=== PATIENT | female | born 1955 | race Caucasian/White ===

== ENCOUNTER 2018-02-27 06:26 | Inpatient (IN) | payer OTHER ==
[2018-02-24 14:00] VITALS: BMI 35.6
[2018-02-27] MEDS ORDERED: fentaNYL CITRATE 250 MCG/5 ML VIAL ONE (07:11)
[2018-02-27] MEDS ORDERED: PROPOFOL 20 ML ONE ×18 (07:11→12:42)
[2018-02-27] MEDS ORDERED: SUCCINYLCHOLINE CHLORIDE 200 MG/10 ML VIAL ONE (07:11)
[2018-02-27] MEDS ORDERED: MIDAZOLAM HCL 2 MG/2 ML SINGLE DOSE VIAL ONE (07:11)
[2018-02-27] MEDS ORDERED: DEXAMETHASONE SOD PHOSPHATE 4 MG/1 ML VIAL ONE ×2 (07:12→08:32)
[2018-02-27] MEDS ORDERED: ceFAZolin SODIUM 1 GM VIAL ONE (07:12)
[2018-02-27] MEDS ORDERED: ONDANSETRON 4 MG/2 ML VIAL ONE (07:12)
[2018-02-27] MEDS ORDERED: TRANEXAMIC ACID 1000 MG/10 ML VIAL ONE (07:12)
[2018-02-27] MEDS ORDERED: VANCOMYCIN 1,000 MG VIAL (RESTRICTED TO ID ONLY) ONE (07:12)
[2018-02-27] MEDS ORDERED: LIDOCAINE HCL/PF 2% SDV 5ML VIAL ONE (07:12)
[2018-02-27] MEDS ORDERED: SODIUM CHLORIDE 0.9% P/F 10 ML VIAL IJ ONE (07:22)
[2018-02-27] MEDS ORDERED: DESFLURANE GAS 240 ML BOTTLE IH ONE (07:26)
[2018-02-27] MEDS ORDERED: THROMBIN (BOVINE) 5,000 UNIT VIAL TP ONE (07:46)
[2018-02-27] MEDS ORDERED: HEPARIN NA (PORCINE) 5,000 UNITS/ML 1ML VIAL ONE (07:46)
[2018-02-27] MEDS ORDERED: VANCOMYCIN 1,000 MG VIAL (RESTRICTED TO ID ONLY) IVPB ONE (08:00)
[2018-02-27] MEDS ORDERED: ePHEDrine SULFATE 50 MG/1 ML AMPULE ONE (08:57)
[2018-02-27] MEDS ORDERED: ceFAZolin SODIUM 1 GM VIAL IVPB ONE (09:25)
[2018-02-27] MEDS ORDERED: ONDANSETRON 4 MG/2 ML VIAL IVPUSH PRN ×2 (13:30→14:06)
[2018-02-27] MEDS ORDERED: LACTATED RINGERS SOLUTION 1,000 ML IV SCH (13:30)
--- NOTE | 2018-02-27 13:52 | OP ---
Operative Note - Note: Operative Date: 02/27/18 Pre-Operative Diagnosis: C4-5, C5-6 spinal stenosis. 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 C4, C5 corpectomy. 2. C3, C6 partial corpectomy. 3. C3-4, C4-5, C5-6 discectomies. 4. C3-C6 anterior cervical decompression and instrumented fusion Findings: Cervical spinal stenosis Post-Operative Diagnosis: Same as Pre-op Surgeon: Edis Frankel Photo Printer: Raoul Frankel Anesthesiologist/HEAD STILL OPERATOR: Brendan Wei Anesthesia: General Specimens Removed: C3-4, C4-5, C5-6 disks Estimated Blood Loss (mls): 50 Operative Report Dictated: Yes
--- NOTE | 2018-02-27 13:57 | PN ---
Progress Note (short form) - Note Progress Note: 62F s/p C3-C6 anterior cervical decompression & fusion POD #0. -Admit to ICU post-op & overnight for airway monitoring. -Pain control. -Ryanne-op antibiotics. -Mechanical DVT PPx. only: TASHA's, SCD's. -Incentive spirometry. -PT/OT/Rehab, OOB. -WBAT B/L UE & LE. -Remove hernandez catheter this evening. -f/u AM labs. -Clear liquid diet; advance as tolerated. -Care per primary medical hospitalist team. -Discharge planning. -Will follow. Raoul Frankel MD (Orthopaedic Surgery).
[2018-02-27] MEDS ORDERED: ACETAMINOPHEN 1000 MG/100 ML VIAL (NON FORMULARY) IVPB ONE (14:05)
--- NOTE | 2018-02-27 14:57 | OP ---
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 OPERATION PERFORMED: 1. Corpectomy, C4-5, with associated C3-4, C4-5, 5-6 diskectomies. 2. Partial corpectomy, C3, and partial corpectomy, C-6. 3. Anterior arthrodesis, C3-C6. 4. Anterior plating, C3-C6. 5. Insertion of Harms Cage from C3-C6. 6. Use of biplane fluoroscopy and intraoperative neural monitoring. ANESTHESIA: General. ANTIBIOTICS GIVEN: Kefzol 2 g, 1 g vancomycin , and 1 g Kefzol given at the end of the procedure, 10 mg of Decadron given as well. PROCEDURE DETAILS: The patient was correctly identified, brought to the operating room, placed supine on the operating room table. Patient was subjected to general anesthesia. In the neutral supine position, full neuromonitoring numbers were run through her then the patient was placed with the neck in extension. A bolster was placed behind the scapula, the neck extended. Numerical numbers with neuromonitoring team ran again showed no change. The wound was draped, prepped in the routine manner with Betadine scrub solution, wiped with alcohol, Duraprep applied, a window drape applied. An oblique incision was made at the level of the cricothyroid interval. The fascia was split. Appropriate veins were tied off. The interval between the viscera and vessels was entered. The large osteophyte was noted. The tissue of the anterior interbody space was freed with a Peanut. The longus coli was dissected off of the bone bed for the insertion of the teeth of the retractors appropriately. This was the unipolar Bovie and no complications. Marker pen placed in the C4-5 disk. This was readily noted. The vertebral bodies of C4 and C5 were removed. Once this had been performed, the entire complex was resected. Using the Leksell rongeurs and le-tipped Midas Igor bur, the disk of C3-4, 4-5, and 5-6 were resected, and the endplate squared off appropriately at C3 and C6. Lawrence pins were placed in the bodies of C3 and C6. This was distracted and a Harms Cage, which measured 12 mm, was cut into to fit exactly the size of the distracted interspace locking the sharp teeth of the cage into the endplate of C3 and C7. The thickened dura had been completely freed. The posterior longitudinal ligament resected completely. The expansion of the dura readily noted. Once the cage was inserted, plating was a size 46 Simplicity Plus from [employer] was inserted, 12 mm self-tapping screws x4 were inserted, 2 in C3 and 2 in C6. A solid fixation achieved, the locking mechanism engaged. The wounds were thoroughly lavaged. The closure was as follows, Platysma with 3-0 Vicryl, subcutaneous 3-0 Vicryl, skin 3-0 Monocryl with Steri-Strips. Drainage none. Operation did well with no complications. Intraoperative x-rays revealed excellent positioning of the implant. MD JORGE [id number]
[2018-02-27] MEDS: LACTATED RINGERS SOLUTION 1,000 ML IV SCH (16:00)
[2018-02-27] MEDS: ACETAMINOPHEN 1000 MG/100 ML VIAL (NON FORMULARY) IVPB SCH (18:19)
[2018-02-27] MEDS: ceFAZolin 2 GRAM PREMIX BAG IVPB SCH (18:26)
[2018-02-27] MEDS ORDERED: PATIENT'S OWN MEDICATION (NON-FORMULARY) (Oxybutynin Chloride [Ditropan Xl] 10 MG) PO SCH (22:00)
[2018-02-27] MEDS: guaiFENesin 200 MG/10 ML 10 ML UNIT-DOSE CUPS PO PRN (22:56)
[2018-02-27] MEDS: oxyCODONE HCL 5 MG TABLET PO PRN (22:56)
[2018-02-28] MEDS: ACETAMINOPHEN 1000 MG/100 ML VIAL (NON FORMULARY) IVPB SCH ×2 (00:15→08:21)
[2018-02-28] MEDS: ceFAZolin 2 GRAM PREMIX BAG IVPB SCH ×2 (02:18→09:38)
[2018-02-28 06:19] LABS: HEMATOCRIT 22.9 % (32.4-45.2); HEMOGLOBIN 7.4 GM/dL (10.7-15.3); MCH 24.9 pg (25.7-33.7); MCHC 32.4 g/dl (32.0-36.0); MEAN CELL VOLUME 76.8 fl (80-96); MEAN PLT VOLUME 7.8 fl (7.5-11.1); PLATELET COUNT 225 K/MM3 (134-434); RBC 2.98 M/mm3 (3.60-5.2); RDW 19.2 % (11.6-15.6); WHITE BLOOD COUNT 6.5 K/mm3 (4.0-10.0)
[2018-02-28 06:42] LABS: ANION GAP 8 (8-16); BLOOD UREA NITROGEN 15 mg/dL (7-18); CALCIUM 8.2 mg/dL (8.5-10.1); CHLORIDE 108 mmol/L (98-107); CO2 26 mmol/L (21-32); CREATININE 0.7 mg/dL (0.55-1.02); GLUCOSE,RANDOM 104 mg/dL (74-106); POTASSIUM 4.2 mmol/L (3.5-5.1); SODIUM 142 mmol/L (136-145)
--- NOTE | 2018-02-28 09:34 | PN ---
Progress Note (short form) - Note Progress Note: POD #1 - s/p C4-7 ACDF, C5-6 corpectomy under GA. VSS. Pt. doing well, resting comfortably in bed. No apparent anesthetic complications noted. Good pain control - pain meds as per surgery. Continue current care.
[2018-02-28] MEDS: SERTRALINE HCL 50 MG TABLET (FP) PO SCH (09:37)
--- NOTE | 2018-02-28 09:48 | PN ---
Physical Exam: PCP: Dr. Chung Patient is a 62 year old female came in to the hospital for an elective surgery for spinal stenosis. Patient mentions she has had neck pain since 2016, has been going for physical therapy without any relief. Hence has been visiting Dr. Frankel's office for further evaluation and was sent to the hospital yesterday for an elective surgery. Patient says she lives at home by herself. Had a mechanical fall a week ago, landed on the left hand, didn't hit her head or lose consciousness. Walks with a walker and needs to be replaced. Patient underwent surgery on 02/27/2018 C4, C5 corpectomy. 2. C3, C6 partial corpectomy. 3. C3-4, C4-5, C5-6 discectomies. 4. C3-C6 anterior cervical decompression and instrumented fusion. Was admitted in ICU for airway protection. Past Medical Hx: Hypertension, DM, Urinary retention, Depression Allergies: Warfarin, Penicillins, Sulfa Surgery: Hip, knee, spinal, 2 shoulder surgery and gastric bypass Smoking/Drugs: Denies Alcohol: Occasional SUBJECTIVE: Patient seen and examined at bed side this morning. Complaints of left hand pain that started last night, pain from the left hand till left elbow, has swelling, pain on movement. Denies numbness, tingling, headache, chills, rigors , sweating, chest pain, sob, cough, palpitation, abdominal pain, nausea or vomiting. Last Bowel movement [address] in [address]. As per RN, no acute overnight events. OBJECTIVE: Vital Signs Period Temp Pulse Resp BP Sys/Chou Pulse Ox Last 24 Hr 97.5 F-98.8 F 51-74 11-20 102-125/52-72 95-100 GENERAL: Patient is lying comfortably in bed, awake, alert, and fully oriented, in no acute distress. HEAD: Normal with no signs of trauma. EYES: EOM intact, no pallor or icterus. ENT: Ears normal, dry mucous membranes. NECK: Dressing applied in the anterior neck, tender to touch around the area. LUNGS: B/L Breath sounds equal, clear to auscultation bilaterally, no wheezes, no crackles, no accessory muscle use. HEART: Bradycardia, Regular rate and rhythm, S1, S2 without murmur. ABDOMEN: Soft, nontender, nondistended, normoactive bowel sounds, no guarding, no rebound, no hepatosplenomegaly, no masses. UPPER RIGHT EXTREMITY: 2+ pulses, warm, well-perfused, no edema. LEFT UPPER EXTREMITY: 2+ pulses, warm, well-perfused, Swelling of the hand+, tenderness till left elbow, ROM limited due to pain. NEUROLOGICAL: No facial droop, Normal speech, gait not observed. PSYCH: Normal mood, normal affect. SKIN: Warm, dry, normal turgor, no rashes or lesions noted Laboratory Results - last 24 hr 02/27/18 02/28/18 02/28/18 07:20 05:50 05:50 WBC 6.5 RBC 2.98 L Hgb 7.4 L Hct 22.9 L MCV 76.8 L MCH 24.9 L MCHC 32.4 RDW 19.2 H Plt Count 225 MPV 7.8 Sodium 142 Potassium 4.2 Chloride 108 H Carbon Dioxide 26 Anion Gap 8 BUN 15 Creatinine 0.7 POC Glucometer 112 Random Glucose 104 Calcium 8.2 L Active Medications Generic Name Dose Route Start Last Admin Trade Name Freq PRN Reason Stop Dose Admin Cefazolin Sodium/Dextrose 2 gm 02/27/18 18:00 02/28/18 09:38 Ancef 2 Gm Premixed Ivpb - IVPB 02/28/18 17:59 2 gm Q8H WILLIAM Administration Fentanyl 50 mcg 02/27/18 13:30 Sublimaze Injection - IVPUSH Q5M PRN PAIN-PACU ORDER X 4 DOSES ONLY Guaifenesin 10 ml 02/27/18 22:49 02/27/18 22:56 Robitussin - PO 10 ml Q4H PRN Administration COUGH Lactated Ringer's 1,000 mls @ 83 mls/hr 02/27/18 14:15 02/27/18 16:00 Lactated Ringers Solution IV 83 mls/hr ASDIR WILLIAM Administration Lisinopril 5 mg 02/28/18 10:00 02/28/18 09:38 Prinivil PO 5 mg DAILY WILLIAM Administration Non-Formulary Medication 10 mg 02/27/18 22:00 Oxybutynin Chloride [Ditropan Xl] PO BID WILLIAM Ondansetron HCl 4 mg 02/27/18 13:30 Zofran Injection IVPUSH Q6H PRN NAUSEA AND/OR VOMITING Ondansetron HCl 4 mg 02/27/18 14:06 Zofran Injection IVPUSH Q6H PRN NAUSEA AND/OR VOMITING Oxycodone HCl 5 mg 02/27/18 14:06 Roxicodone - PO Q4H PRN PAIN LEVEL 6-10 Oxycodone HCl 10 mg 02/27/18 14:06 02/27/18 22:56 Roxicodone - PO 10 mg Q4H PRN Administration PAIN LEVEL 6-10 Sertraline HCl 100 mg 02/28/18 10:00 02/28/18 09:37 Zoloft - PO 100 mg DAILY WILLIAM Administration ASSESSMENT/PLAN: Patient is a 62 year old female came in to the hospital for an elective surgery for spinal stenosis admitted in ICU for airway protection. # C4-5, C5-6 spinal stenosis. Cervical spondylogenic myelopathy s/p C4, C5 corpectomy. 2. C3, C6 partial corpectomy. 3. C3-4, C4-5, C5-6 discectomies. 4. C3-C6 anterior cervical decompression and instrumented fusion- POD 1 Admitted in ICU for airway protection. Afebrile overnight, no leukocytosis Tolerating liquid diet OOB, PT, remove hernandez- as per Dr. Frankel's note Continue IV Cefazolin 2gm Q8H IV LR @ 83mls/hr IV Fentanyl 50 mcg Q5mins PRN (Max 4 doses) # Microcytic anemia Hb: 7.4/22.9 MCV-76.8 Estimated blood loss during surgery was 50 mls Will repeat CBC at 2 pm, if it is < 7 gm/dl transfuse Will send Iron studies. # Left upper ext pain-R/O fracture has swelling and pain, ROM limited due to pain. Had a mechanical fall a week ago. X-ray of hand/Wrist to r/o fracture Physical therapy once stable, needs the walker to be replaced. # Hypertension-controlled Continue Lisinopril 5mg PO Daily # Diabetes Mellitus A1c to be done at 2pm with CBC Finger stick glucose monitoring ISS Hold Metformin 500mg PO BID Watch for hypoglycemic episodes # Urinary retention Continue Oxybutinin. D/C hernandez. # Depression Continue Sertraline 100mg PO Daily. # All medications confirmed with the pharmacy. # FEN IV LR @ 83 mls/hr Electrolytes WNL Liquid Diet # Prophylaxis For DVT: On SCDs, no heparin to be given due to low Hb and recent surgery For GI: Continue Omeprazole 20mg PO daily # Code Status: Full Code Illness, Investigation and Plan of care explained to the patient. She verbalized understanding. Case discussed with Dr. Westbrook. Visit type - Emergency Visit Emergency Visit: Yes ED Registration Date: 02/27/18 Care time: The patient presented to the Emergency Department on the above date and was hospitalized for further evaluation of their emergent condition. - New Patient This patient is new to me today: Yes Date on this admission: 02/28/18 - Critical Care Critical Care patient: Yes Total Critical Care Time (in minutes): 40 Critical Care Statement: The care of this patient involved high complexity decision making to prevent further life threatening deterioration of the patient 's condition and/or to evaluate & treat vital organ system(s) failure or risk of failure. - Discharge Referral Referred to [facility] No
[2018-02-28] MEDS ORDERED: PATIENT'S OWN MEDICATION (NON-FORMULARY) (Sertraline Hcl [Zoloft] 100 MG) PO SCH (10:00)
[2018-02-28] MEDS ORDERED: LISINOPRIL 5 MG TABLET (FP) PO SCH ×2 (10:00→10:53)
--- NOTE | 2018-02-28 11:25 | PN ---
Teaching Attending Note Name of Resident: Asia Davis ATTENDING PHYSICIAN STATEMENT I saw and evaluated the patient. I reviewed the resident's note and discussed the case with the resident. I agree with the resident's findings and plan as documented. SUBJECTIVE: Pt seen and examined in the ICU. Briefly, 62yo female with h/o cervical spinal stenosis who underwent a C3-C6 anterior cervical decompression/fusion. Seen post op day 1. States no neck pain, c/o left arm and hand pain with touch and movement. No shortness of breath or chest pain. No fevers or chills. No flatus yet. OBJECTIVE: Last Vital Signs Temp Pulse Resp BP Pulse Ox 98.8 F 51 L 11 L 106/57 100 02/28/18 02:00 02/28/18 08:00 02/28/18 08:00 02/28/18 08:00 02/28/18 07:59 Intake & Output 02/25/18 02/26/18 02/27/18 02/28/18 23:59 23:59 23:59 23:59 Intake Total 2099 1058.9 Output Total 700 Balance 1399 1058.9 Gen: NAD at rest Heart: RRR Lung: decreased breath sounds at the bases Abd: soft, nontender Ext: LUE pain with touch, decreased motor strength CBC, BMP 02/28/18 05:50 02/28/18 05:50 Active Medications Cefazolin Sodium/Dextrose (Ancef 2 Gm Premixed Ivpb -) 2 gm IVPB Q8H [facility] Stop: 02/28/18 17:59 Last Admin: 02/28/18 09:38 Dose: 2 gm Fentanyl (Sublimaze Injection -) 50 mcg IVPUSH Q5M PRN PRN Reason: PAIN-PACU ORDER X 4 DOSES ONLY Guaifenesin (Robitussin -) 10 ml PO Q4H PRN PRN Reason: COUGH Last Admin: 02/27/18 22:56 Dose: 10 ml Lactated Ringer's (Lactated Ringers Solution) 1,000 mls @ 83 mls/hr IV ASDIR [facility] Last Admin: 02/27/18 16:00 Dose: 83 mls/hr Insulin Aspart (Novolog Vial Sliding Scale -) 1 vial SQ ACHS [facility] PRN Reason: Protocol Lisinopril (Prinivil) 5 mg PO DAILY [facility] Non-Formulary Medication (Oxybutynin Chloride [Ditropan Xl]) 10 mg PO BID [facility] Ondansetron HCl (Zofran Injection) 4 mg IVPUSH Q6H PRN PRN Reason: NAUSEA AND/OR VOMITING Ondansetron HCl (Zofran Injection) 4 mg IVPUSH Q6H PRN PRN Reason: NAUSEA AND/OR VOMITING Oxycodone HCl (Roxicodone -) 5 mg PO Q4H PRN PRN Reason: PAIN LEVEL 6-10 Oxycodone HCl (Roxicodone -) 10 mg PO Q4H PRN PRN Reason: PAIN LEVEL 6-10 Last Admin: 02/27/18 22:56 Dose: 10 mg Pantoprazole Sodium (Protonix -) 20 mg PO DAILY [facility] Sertraline HCl (Zoloft -) 100 mg PO DAILY [facility] Last Admin: 02/28/18 09:37 Dose: 100 mg ASSESSMENT AND PLAN: Cervical Spinal Stenosis s/p C3-C6 anterior cervical decompression/fusion HTN DM Depression - pain control - monitor H/H - incentive spirometry - monitor neuro exam - PO per surgery - d/c hernandez - rehab/PT - mechanical DVT prophylaxis - disposition per surgery
[2018-02-28] MEDS: INSULIN SLIDING SCALE (NOVOLOG) 1 VIAL SQ SCH ×3 (11:30→21:54)
--- NOTE | 2018-02-28 11:40 | CONSULT ---
Consultation: REQUESTING PROVIDER: CONSULT REQUEST: We have been asked to medically evaluate this patient for airway protection. HISTORY OF PRESENT ILLNESS: 62F with PMH of cervical spinal stenosis, htn, DM, depression, urinary retention , presents for elective anterior cervical decompression/fusion surgery with Dr. Frankel. Pt reports neck pain since 2016, not relieved with physical therapy. Pt reports recent fall from chair while at home, landing on Left hand. She denies hitting head and LOC. Pt seen in the ICU post-op day #1. Pt c/o Left hand arm/hand pain with touch and movement. Pt denies chest pain, sob, abdominal pain, fever, chills, n/v/c/d. Pt denies flatus. Pt tolerates her clear liquid diet. No events overnight. REVIEW OF SYSTEMS: CONSTITUTIONAL: Absent: fever, chills, diaphoresis HEENT: Absent: rhinorrhea, nasal congestion, throat pain, ear pain, eye pain, visual changes CARDIOVASCULAR: Absent: chest pain, syncope, palpitations, irregular heart rate RESPIRATORY: Absent: cough, shortness of breath, dyspnea with exertion, orthopnea, wheezing, stridor GASTROINTESTINAL: Absent: abdominal pain, abdominal distension, nausea, vomiting, diarrhea, constipation MUSCULOSKELETAL: Left hand/arm pain Absent: myalgia, back pain SKIN: Absent: rash, itching, pallor HEMATOLOGIC/IMMUNOLOGIC: Absent: easy bleeding, easy bruising, lymphadenopathy NEUROLOGIC: Absent: headache, dizziness PSYCHIATRIC: Absent: anxiety, depression, suicidal or homicidal ideation, hallucinations. PHYSICAL EXAMINATION Vital Signs - 24 hr 02/27/18 02/27/18 02/27/18 13:35 13:50 14:05 Temperature 98.0 F Pulse Rate 74 70 70 Respiratory 16 16 16 Rate Blood Pressure 125/61 119/62 124/60 O2 Sat by Pulse 96 96 96 Oximetry (%) 02/27/18 02/27/18 02/27/18 14:20 14:35 14:50 Temperature Pulse Rate 68 72 60 Respiratory 16 16 16 Rate Blood Pressure 118/60 110/60 112/60 O2 Sat by Pulse 95 95 96 Oximetry (%) 02/27/18 02/27/18 02/27/18 15:05 15:20 15:35 Temperature 98.0 F Pulse Rate 62 60 70 Respiratory 16 16 16 Rate Blood Pressure 115/61 116/60 109/52 O2 Sat by Pulse 96 95 Oximetry (%) 02/27/18 02/27/18 02/27/18 16:00 18:00 20:12 Temperature 97.5 F L Pulse Rate 58 L 61 Respiratory 13 15 Rate Blood Pressure 112/58 108/61 O2 Sat by Pulse 96 100 Oximetry (%) 02/27/18 02/28/18 02/28/18 22:00 00:00 02:00 Temperature 98.8 F Pulse Rate 70 56 L 53 L Respiratory 20 11 L 11 L Rate Blood Pressure 102/72 108/60 105/53 O2 Sat by Pulse Oximetry (%) 02/28/18 02/28/18 02/28/18 04:00 06:00 07:59 Temperature Pulse Rate 52 L 51 L Respiratory 18 19 Rate Blood Pressure 102/59 106/60 O2 Sat by Pulse 100 Oximetry (%) 02/28/18 08:00 Temperature Pulse Rate 51 L Respiratory 11 L Rate Blood Pressure 106/57 O2 Sat by Pulse Oximetry (%) GENERAL: Awake, alert, and fully oriented, in no acute distress. LUNGS: Breath sounds equal, clear to auscultation bilaterally. No wheezes, and no crackles. No accessory muscle use. HEART: Regular rate and rhythm, normal S1 and S2 without murmur, rub or gallop. ABDOMEN: Soft, nontender, not distended, no guarding. UPPER EXTREMITIES: 2+ doron radial pulses, warm, well-perfused. Left UE edema noted. LOWER EXTREMITIES: 2+ doron pulses, warm, well-perfused. No calf tenderness. No peripheral edema. NEUROLOGICAL: Cranial nerves II-XII grossly intact. Sensation intact and symmetric throughout. Normal speech. No facial droop. Muscle strength 5/5 to Right UE and Right LE. Left LE 5/5 strength at ankle, Left knee fused per pt and difficult to move. Left UE 4/5 strength. PSYCHIATRIC: Cooperative. Good eye contact. Appropriate mood and affect. SKIN: Warm, dry, normal turgor, no rashes or lesions noted. Laboratory Results - last 24 hr 02/27/18 02/28/18 02/28/18 07:20 05:50 05:50 WBC 6.5 RBC 2.98 L Hgb 7.4 L Hct 22.9 L MCV 76.8 L MCH 24.9 L MCHC 32.4 RDW 19.2 H Plt Count 225 MPV 7.8 Sodium 142 Potassium 4.2 Chloride 108 H Carbon Dioxide 26 Anion Gap 8 BUN 15 Creatinine 0.7 POC Glucometer 112 Random Glucose 104 Calcium 8.2 L 02/28/18 11:18 WBC RBC Hgb Hct MCV MCH MCHC RDW Plt Count MPV Sodium Potassium Chloride Carbon Dioxide Anion Gap BUN Creatinine POC Glucometer [id number] Random Glucose Calcium Active Medications Generic Name Dose Route Start Last Admin Trade Name Freq PRN Reason Stop Dose Admin Cefazolin Sodium/Dextrose 2 gm 02/27/18 18:00 02/28/18 09:38 Ancef 2 Gm Premixed Ivpb - IVPB 02/28/18 17:59 2 gm Q8H WILLIAM Administration Fentanyl 50 mcg 02/27/18 13:30 Sublimaze Injection - IVPUSH Q5M PRN PAIN-PACU ORDER X 4 DOSES ONLY Guaifenesin 10 ml 02/27/18 22:49 02/27/18 22:56 Robitussin - PO 10 ml Q4H PRN Administration COUGH Lactated Ringer's 1,000 mls @ 83 mls/hr 02/27/18 14:15 02/27/18 16:00 Lactated Ringers Solution IV 83 mls/hr ASDIR WILLIAM Administration Insulin Aspart 1 vial 02/28/18 11:00 Novolog Vial Sliding Scale - SQ ACHS [facility] Protocol Lisinopril 5 mg 02/28/18 10:53 Prinivil PO DAILY [facility] Non-Formulary Medication 10 mg 02/27/18 22:00 Oxybutynin Chloride [Ditropan Xl] PO BID [facility] Ondansetron HCl 4 mg 02/27/18 13:30 Zofran Injection IVPUSH Q6H PRN NAUSEA AND/OR VOMITING Ondansetron HCl 4 mg 02/27/18 14:06 Zofran Injection IVPUSH Q6H PRN NAUSEA AND/OR VOMITING Oxycodone HCl 5 mg 02/27/18 14:06 Roxicodone - PO Q4H PRN PAIN LEVEL 6-10 Oxycodone HCl 10 mg 02/27/18 14:06 02/27/18 22:56 Roxicodone - PO 10 mg Q4H PRN Administration PAIN LEVEL 6-10 Pantoprazole Sodium 20 mg 03/01/18 10:00 Protonix - PO DAILY WILLIAM Sertraline HCl 100 mg 02/28/18 10:00 02/28/18 09:37 Zoloft - PO 100 mg DAILY WILLIAM Administration ASSESSMENT/PLAN: 62F with PMH of cervical spinal stenosis, htn, DM, depression, urinary retention , presents for elective anterior cervical decompression/fusion surgery with Dr. Frankel, admitted to the ICU. # cervical spinal stenosis - s/p C3-C6 anterior cervical decompression/fusion on 02/27/[address] Frankel - POD # 1 - post-op care per surgery, Dr. Frankel: OOB and WBAT - pain control with Oxycodone prn - continue Zofran prn for nausea - Day 2 of IV Ancef - encourage Incentive Spirometry # Left UE/hand pain - f/u xray to r/o fracture - PT # microcytic anemia - monitor CBC - monitor for overt s/s of bleeding # htn - continue home med of Lisinopriol # DM - Novolog SSI - diabetic, clear liquid diet - oral anti-glycemic held # urinary retention - continue home med of Oxybutynin - hernandez D/Phi # depression - continue home med of Zoloft # FEN - Fluids: LR @ 83 ml/hr - Electrolytes: wnl, continue to monitor - Nutrition: clear liquids # Prophylaxis - DVT ppx with doron SCDs - deconditioning ppx with PT/OT/rehab Dispo: We will continue to follow the patient. Thank you for this consultative opportunity. Visit type - Emergency Visit Emergency Visit: Yes ED Registration Date: 02/27/18 Care time: The patient presented to the Emergency Department on the above date and was hospitalized for further evaluation of their emergent condition. - New Patient This patient is new to me today: Yes Date on this admission: 02/28/18 - Critical Care Critical Care patient: Yes Total Critical Care Time (in minutes): 50 Critical Care Statement: The care of this patient involved high complexity decision making to prevent further life threatening deterioration of the patient 's condition and/or to evaluate & treat vital organ system(s) failure or risk of failure.
--- NOTE | 2018-02-28 13:22 | PN ---
Teaching Attending Note Name of Resident: Madina Guidry ATTENDING PHYSICIAN STATEMENT I saw and evaluated the patient. I reviewed the resident's note and discussed the case with the resident. I agree with the resident's findings and plan as documented with exceptions below. SUBJECTIVE: patient seen and examined, having lunch, pain well controlled currently. Left wrist pain since fall a week ago, no dyspnea, cough, stridor, abdominal or urinary symptoms. OBJECTIVE: Vital Signs Period Temp Pulse Resp BP Sys/Chou Pulse Ox Last 24 Hr 97.5 F-98.8 F 51-74 11-20 102-125/52-72 95-100 Intake & Output 02/25/18 02/26/18 02/27/18 02/28/18 23:59 23:59 23:59 23:59 Intake Total 2099 1058.9 Output Total 700 Balance 1399 1058.9 GENERAL: Awake, alert, and fully oriented, in no acute distress. HEAD: Normal with no signs of trauma. EYES: Pupils equal, round and reactive to light, extraocular movements intact, sclera anicteric, conjunctiva clear. No lid lag. EARS, NOSE, THROAT: Ears normal, nares patent, oropharynx clear without exudates. Moist mucous membranes. NECK: horizontal dressing anterior neck. LUNGS: Breath sounds equal, clear to auscultation bilaterally. No wheezes, and no crackles. No accessory muscle use. HEART: S1S2 regular ABDOMEN: Soft, nontender, not distended, normoactive bowel sounds, no guarding, no rebound, no masses. MUSCULOSKELETAL: no C-spine tenderness elicited UPPER EXTREMITIES: left wrist swelling with tenderness on medial dorsal aspect, no limitation ROM left wrist noted, able to move fingers but with pain. LOWER EXTREMITIES: 2+ pulses, warm, well-perfused. No calf tenderness. No peripheral edema. NEUROLOGICAL: facial symmetry, neck movements limited given surgical dressing, power 5/5 RUE/bilateral LE, LUE limited movements at wrist otherewise 5/5 PSYCHIATRIC: Cooperative. Good eye contact. Appropriate mood and affect. SKIN: Warm, dry, normal turgor, no rashes or lesions noted, normal capillary refill. Home Medication List Medication Instructions Recorded Confirmed Type Aspirin [ASA -] 81 mg PO DAILY 05/04/16 02/27/18 History Cholecalciferol (Vitamin D3) 2,000 unit PO DAILY 05/04/16 02/27/18 History [Vitamin D3] Gabapentin 600 mg PO TID 05/04/16 02/27/18 History Lisinopril 5 mg PO DAILY 05/04/16 02/27/18 History Metformin HCl 500 mg PO BID 05/04/16 02/27/18 History Omeprazole 20 mg PO DAILY 05/04/16 02/27/18 History Oxybutynin Chloride [Ditropan Xl] 10 mg PO BID 05/04/16 02/27/18 History Sertraline HCl [Zoloft] 100 mg PO DAILY 05/04/16 02/27/18 History Active Medications Generic Name Dose Route Start Last Admin Trade Name Freq PRN Reason Stop Dose Admin Cefazolin Sodium/Dextrose 2 gm 02/27/18 18:00 02/28/18 09:38 Ancef 2 Gm Premixed Ivpb - IVPB 02/28/18 17:59 2 gm Q8H WILLIAM Administration Docusate Sodium 100 mg 02/28/18 22:00 Colace - PO BID WILLIAM Guaifenesin 10 ml 02/27/18 22:49 02/27/18 22:56 Robitussin - PO 10 ml Q4H PRN Administration COUGH Lactated Ringer's 1,000 mls @ 83 mls/hr 02/27/18 14:15 02/27/18 16:00 Lactated Ringers Solution IV 83 mls/hr ASDIR WILLIAM Administration Insulin Aspart 1 vial 02/28/18 11:00 02/28/18 11:30 Novolog Vial Sliding Scale - SQ Not Given ACHS [facility] Protocol Lisinopril 5 mg 02/28/18 12:22 Prinivil PO DAILY [facility] Non-Formulary Medication 10 mg 02/27/18 22:00 Oxybutynin Chloride [Ditropan Xl] PO BID WILLIAM Ondansetron HCl 4 mg 02/27/18 13:30 Zofran Injection IVPUSH Q6H PRN NAUSEA AND/OR VOMITING Ondansetron HCl 4 mg 02/27/18 14:06 Zofran Injection IVPUSH Q6H PRN NAUSEA AND/OR VOMITING Oxycodone HCl 5 mg 02/27/18 14:06 Roxicodone - PO Q4H PRN PAIN LEVEL 6-10 Oxycodone HCl 10 mg 02/27/18 14:06 02/27/18 22:56 Roxicodone - PO 10 mg Q4H PRN Administration PAIN LEVEL 6-10 Pantoprazole Sodium 20 mg 03/01/18 10:00 Protonix - PO DAILY WILLIAM Senna 2 tab 02/28/18 22:00 Senna - PO HS WILLIAM Sertraline HCl 100 mg 02/28/18 10:00 02/28/18 09:37 Zoloft - PO 100 mg DAILY WILLIAM Administration Laboratory Results - last 24 hr 02/27/18 02/28/18 02/28/18 07:20 05:50 05:50 WBC 6.5 RBC 2.98 L Hgb 7.4 L Hct 22.9 L MCV 76.8 L MCH 24.9 L MCHC 32.4 RDW 19.2 H Plt Count 225 MPV 7.8 Sodium 142 Potassium 4.2 Chloride 108 H Carbon Dioxide 26 Anion Gap 8 BUN 15 Creatinine 0.7 POC Glucometer 112 Random Glucose 104 Calcium 8.2 L 02/28/18 11:18 WBC RBC Hgb Hct MCV MCH MCHC RDW Plt Count MPV Sodium Potassium Chloride Carbon Dioxide Anion Gap BUN Creatinine POC Glucometer 128.39213 Random Glucose Calcium ASSESSMENT AND PLAN: 62 yof with pMHx of HTN, NIDDM, OA, Cervical spinal stenosis, came for elective C-spine surgery on 02/27, -Cervical spinal stenosis s/p Corpectomy/discectomy/fusion 02/27 -Fall a week ago with left wrist pain/swelling -Anemia, ? surgical blood loss, ?baseline -NIDDM -HTN -OA Plan: Activity/PT eval/DVTPPX/pain control per Dr. Frankel. Bowel regimen. Left wrist xrays. Monitor h/h, transfuse prn. Check iron panel. Hold metformin, ISS, diabetic diet. Hold Lisinopril for SBP < 110 for now. DVTPPX per Dr. Frankel. Dispo transfer to med surg per Dr. Frankel. Plan discussed with patient in detail, all questions answered. total critical care time spent in ICU 35 min.
[2018-02-28] MEDS: LACTATED RINGERS SOLUTION 1,000 ML IV SCH (15:00)
[2018-02-28] MEDS: oxyCODONE HCL 5 MG TABLET PO PRN ×2 (15:39→21:42)
[2018-02-28] MEDS: DOCUSATE SODIUM 100 MG CAPSULE (FP) PO SCH (21:42)
[2018-02-28] MEDS: SENNOSIDES 8.6MG TABLET (FP) PO SCH ×2 (21:42→21:52)
[2018-03-01] MEDS: oxyCODONE HCL 5 MG TABLET PO PRN ×2 (02:30→22:49)
[2018-03-01] MEDS: INSULIN SLIDING SCALE (NOVOLOG) 1 VIAL SQ SCH ×4 (06:35→22:50)
--- NOTE | 2018-03-01 07:33 | PN ---
Physical Exam: SUBJECTIVE: Patient seen and examined - No major overnight events; febrile to 100.2, VSS; tolerating liquids, a&ox3; complaining of surgical site pain; pt with nonproductive cough this AM; also endorsing pain in L hand and wrist; Denies f/c/n/v/d, VELAZQUEZ, CP, SOB, ab pain, back pain, LE edema; + flatus, no BMs OBJECTIVE: Vital Signs Intake & Output 02/26/18 02/27/18 02/28/18 03/01/18 23:59 23:59 23:59 23:59 Intake Total 2099 2892.9 Output Total 700 1600 300 Balance 1399 1292.9 -300 Period Temp Pulse Resp BP Sys/Chou Pulse Ox Last 24 Hr 98.1 F-100.2 F 51-68 11-20 106-118/57-73 98-100 GENERAL: Middle aged woman, NAD, in bed HEAD: NCAT EYES: PERRL, extraocular movements intact, sclera anicteric, conjunctiva clear. No ptosis. ENT: Poor dentition. Ears normal, nares patent, oropharynx clear without exudates, moist mucous membranes. NECK: Anterior surgical bandages noted with no surround erythema, edema or tenderness. Trachea midline, full range of motion, supple. LUNGS: CTABL, no wheezes, no crackles, no accessory muscle use. HEART: Regular rate and rhythm, S1, S2 without murmur, rub or gallop. ABDOMEN: Globular, otherwise soft, nontender, nondistended, normoactive bowel sounds, no guarding, no rebound, no hepatosplenomegaly, no masses. EXTREMITIES: 2+ pulses, warm, well-perfused, no edema. NEUROLOGICAL: Cranial nerves II through XII grossly intact. Normal speech, gait not observed. 5/5 strength in all extremities, preserved sensation. Pain on palpation of L wrist joint space, as well as dorsal aspect of L hand PSYCH: Normal mood, normal affect. SKIN: Warm, dry, normal turgor, no rashes or lesions noted Laboratory Results - last 24 hr CBC, BMP 03/01/18 06:20 03/01/18 06:20 02/28/18 05:50 02/28/18 05:50 02/28/18 02/28/18 03/01/18 11:18 21:38 06:29 POC Glucometer 128.70440 142 122 Active Medications Generic Name Dose Route Start Last Admin Trade Name Freq PRN Reason Stop Dose Admin Docusate Sodium 100 mg 02/28/18 22:00 02/28/18 21:42 Colace - PO 100 mg BID WILLIAM Administration Guaifenesin 10 ml 02/27/18 22:49 02/27/18 22:56 Robitussin - PO 10 ml Q4H PRN Administration COUGH Insulin Aspart 1 vial 02/28/18 11:00 03/01/18 06:35 Novolog Vial Sliding Scale - SQ Not Given ACHS [facility] Protocol Lisinopril 5 mg 02/28/18 12:22 Prinivil PO DAILY [facility] Non-Formulary Medication 10 mg 02/27/18 22:00 Oxybutynin Chloride [Ditropan Xl] PO BID [facility] Ondansetron HCl 4 mg 02/27/18 13:30 Zofran Injection IVPUSH Q6H PRN NAUSEA AND/OR VOMITING Ondansetron HCl 4 mg 02/27/18 14:06 Zofran Injection IVPUSH Q6H PRN NAUSEA AND/OR VOMITING Oxycodone HCl 5 mg 02/27/18 14:06 03/01/18 02:30 Roxicodone - PO 5 mg Q4H PRN Administration PAIN LEVEL 6-10 Oxycodone HCl 10 mg 02/27/18 14:06 02/28/18 21:42 Roxicodone - PO 10 mg Q4H PRN Administration PAIN LEVEL 6-10 Pantoprazole Sodium 20 mg 03/01/18 10:00 Protonix - PO DAILY [facility] Senna 2 tab 02/28/18 22:00 02/28/18 21:52 Senna - PO Not Given HS [facility] Sertraline HCl 100 mg 02/28/18 10:00 02/28/18 09:37 Zoloft - PO 100 mg DAILY WILLIAM Administration No micro Hand/wrist XR 02/28 - AP, lateral and oblique views reveal loss of bone density, degenerative changes and what may be a subtle fracture of an osteophyte off of the base of the middle phalanx of the left third digit seen on the oblique projection. There is swelling. The other bones appear grossly intact. Correlation recommended. ASSESSMENT/PLAN: Patient is a 62 year old female came in to the hospital for an elective surgery for spinal stenosis admitted in ICU for airway protection. Pt doing well, hemostable. Now with new SIDE SAWYER cough and imaging confirmed fx of osteophyte of 3rd phalanx of L hand. #POD 2 from C4-5, C5-6 spinal stenosis. Cervical spondylogenic myelopathy s/p C4, C5 corpectomy. 2. C3, C6 partial corpectomy. 3. C3-4, C4-5, C5-6 discectomies. 4. C3-C6 anterior cervical decompression and instrumented fusion -liquid diet; S+S eval - OOB, PT; hernandez d/c'ed -abx d/c'ed - PO hydration - Diet advance as tolerated once cleared by S+S - PO oxy for pain control - zofran for N/V # Microcytic anemia - Hb: 7.4/22.9 MCV-76.8 on admission - Hgb 8.4 today; transfuse at <7 - f/u iron studies - daily cbcs - monitor for active bleeds # L fx of 3rd phalanx - Ortho consulted - XR of L hand as noted above - PT eval - pain control as above # Hypertension-controlled - lisinopril 5mg daily # DM2 - A1c 6.5 today -hold metformin - ISS, BGM q4h # Urinary retention -Continue Oxybutinin. - hernandez d/c'ed # Depression -Continue Sertraline 100mg PO Daily. # FEN -PO hydration - daily lytes - liquid diet # Prophylaxis - SCDS - PPI full code Plan discussed with attending, Dr. Dariana Orourke, PGY1 Visit type - Emergency Visit Emergency Visit: Yes ED Registration Date: 02/27/18 Care time: The patient presented to the Emergency Department on the above date and was hospitalized for further evaluation of their emergent condition. - New Patient This patient is new to me today: Yes Date on this admission: 03/01/18 - Critical Care Critical Care patient: No - Discharge Referral Referred to [facility] No
[2018-03-01 07:39] LABS: HEMATOCRIT 26.3 % (32.4-45.2); HEMOGLOBIN 8.4 GM/dL (10.7-15.3); MCH 24.6 pg (25.7-33.7); MCHC 31.8 g/dl (32.0-36.0); MEAN CELL VOLUME 77.5 fl (80-96); MEAN PLT VOLUME 7.8 fl (7.5-11.1); PLATELET COUNT 252 K/MM3 (134-434); RDW 19.9 % (11.6-15.6); WHITE BLOOD COUNT 7.7 K/mm3 (4.0-10.0)
[2018-03-01 08:07] LABS: ANION GAP 9 (8-16); BLOOD UREA NITROGEN 13 mg/dL (7-18); CALCIUM 8.5 mg/dL (8.5-10.1); CHLORIDE 105 mmol/L (98-107); CO2 28 mmol/L (21-32); CREATININE 0.8 mg/dL (0.55-1.02); GLUCOSE,RANDOM 103 mg/dL (74-106); MAGNESIUM 1.9 mg/dL (1.8-2.4); PHOSPHOROUS 3.4 mg/dL (2.5-4.9); POTASSIUM 4.3 mmol/L (3.5-5.1); SODIUM 142 mmol/L (136-145)
[2018-03-01 09:15] LABS: BASO % 0.4 % (0-2.0); EOS % 0.2 % (0-4.5); HEMATOCRIT 26.3 % (32.4-45.2); HEMOGLOBIN 8.4 GM/dL (10.7-15.3); LYMPH % 15.4 % (8-40); MCH 24.8 pg (25.7-33.7); MCHC 32.1 g/dl (32.0-36.0); MEAN CELL VOLUME 77.3 fl (80-96); MEAN PLT VOLUME 8.1 fl (7.5-11.1); PLATELET COUNT 253 K/MM3 (134-434); RBC 3.41 M/mm3 (3.60-5.2); RDW 19.8 % (11.6-15.6); WHITE BLOOD COUNT 7.4 K/mm3 (4.0-10.0)
[2018-03-01] MEDS ORDERED: PT OWN MED DRAWER 7, Y5N ONE (09:31)
[2018-03-01] MEDS: PANTOPRAZOLE 20 MG TABLET (FP) PO SCH (09:37)
[2018-03-01] MEDS: SERTRALINE HCL 50 MG TABLET (FP) PO SCH (09:37)
[2018-03-01] MEDS: LISINOPRIL 5 MG TABLET (FP) PO SCH (09:37)
[2018-03-01] MEDS: DOCUSATE SODIUM 100 MG CAPSULE (FP) PO SCH ×2 (09:37→22:49)
[2018-03-01] MEDS: guaiFENesin 200 MG/10 ML 10 ML UNIT-DOSE CUPS PO PRN ×3 (11:44→22:48)
--- NOTE | 2018-03-01 14:22 | CONSULT ---
Admitting History and Physical - Primary Care Physician PCP: Joi Westbrook - Admission History of Present Illness: 62F with PMH of cervical spinal stenosis, htn, DM, depression, urinary retention , presents for elective anterior cervical decompression/fusion surgery. Pt reports a h/o falling at home. No h/o dysphagia. Operative Date: 02/27/18 Pre-Operative Diagnosis: C4-5, C5-6 spinal stenosis. 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 C4, C5 corpectomy. 2. C3, C6 partial corpectomy. 3. C3-4, C4-5, C5-6 discectomies. 4. C3-C6 anterior cervical decompression and instrumented fusion Pt reports Odynophagia, cough and congestion. History Source: Patient Limitations to Obtaining History: No Limitations - Advance Directives Advance Directives: Yes: Health Care Proxy - Smoking History Smoking history: Never smoked Have you smoked in the past 12 months: No - Alcohol/Substance Use Hx Alcohol Use: Yes (socially) History - Admission Reason For Visit: MID-CERVICAL DISC DISORDER, UNSPECIFIED - General Mental Status: Alert and Oriented, Awake and Alert, Able to Follow Commands Attention: Intact Ability to Follow Directions: Good Head/Neck Control: Needs Assist - Hearing Hearing: Normal Speech Evaluation - Communication Primary Language: SL[place] Communication: Yes: Within Normal Limits Oral Expression Ability: Yes: Mild Impairment (slow to formulate but appropriate.) - Speech Production Able to Make Needs Known: Yes: WNL Intelligibility: Yes: WNL - Speech Characteristics Voice Loudness: Normal Voice Pitch: Yes: Normal Voice Phonatory-based Quality: Yes: Normal Speech Clarity: < 100% Nasal Resonance: Normal Articulation: Yes: Precise - Language/Auditory Comprehension Follows: Yes: 1 Stage Simple Commands - Language/Verbal Expression Aphasia: Yes: Anomia Able to Respond to Simple Queries: Yes: WNL Able to Communicate Wants and Needs: Yes: WNL Functional Communication Status: Yes: WNL - Memory/Perception harbormaster Memory: Yes: WNL Short Term Memory: Yes: WNL - Swallow Evaluation/Bedside Assessment Current Nutritional Intake: Full Liquids Oral Secretions: Yes: WFL Dentition: Yes: Missing Teeth Facial Symmetry at Rest: Symmetrical Facial Symmetry on Retraction: Symmetrical Facial Movement: Controlled Sensation: Normal Against Resistance Opening: Normal Against Resistance Closing: Normal Pucker Lips: Normal Smile: Normal Lingual Movement: Normal, Symmetric Lingual Speed of Movement: Normal Lingual Movement Strgth Against Opposition: Normal Lingual Movement Characteristics: Normal Velopharyngeal Movement: Normal Laryngeal Movement: Able to Palpate, Labored,delay initiation Rate of Intake: Slow/Holding Bolus Size: Large Labial Seal: WFL Chewing: Impaired (not tested but suspected) Timing of Swallow: Delayed Coughing/Throat Clear: Yes (delayed) Change in Voice: No (No vocal wetness with PO intake.) Recommendations - Speech Evaluation, Impression/Plan Impression: r/o dysphagia/stasis/aspiration following C3-C6 anterior cervical decompression/fusion. Swallow is delayed in onset, swallow palpated, with delayed cough. - Disposition Discharge to: [facility] - Dysphagia Impressions/Plan Dysphagia Impressions: Mild Impairment, Risk of Aspiration, Ongoing Evaluation *Silent aspiration: cannot be R/O at bedside Dysphagia Treatment Plan: Chin Tuck/Down (as tolerated and allowed by surgeon.) , 1/2 tsp. at a time, Elevate HOB during feed Recommendations: Modified Barium Swallow - Recommendations Diet Consistency: Dysphagia Pureed Medication Administration: Crushed with applesauce Liquids: [place] Thick
--- NOTE | 2018-03-01 15:23 | PN ---
Teaching Attending Note Name of Resident: Shankar Orourke ATTENDING PHYSICIAN STATEMENT I saw and evaluated the patient. I reviewed the resident's note and discussed the case with the resident. I agree with the resident's findings and plan as documented with exceptions below. SUBJECTIVE: Patient seen and examined. coughing, but denies dyspnea. Taking some liquids currently. no BM yet but passing gas. no abdominal or urinary symptoms. OBJECTIVE: Vital Signs Period Temp Pulse Resp BP Sys/Chou Pulse Ox Last 24 Hr 98.1 F-100.2 F 54-71 18-20 112-125/62-73 91-98 Intake & Output 02/26/18 02/27/18 02/28/18 03/01/18 23:59 23:59 23:59 23:59 Intake Total 2099 2892.9 236 Output Total 700 1600 300 Balance 1399 1292.9 -64 General: sitting in bed, coarse cough, no acute distress, no use of acessory muscles of respiration Chest: few coarse scattered rales, no wheezing abdomen:soft, NT, positive bowel sounds extremities: left wrist swelling with tenderness unchanged HEENT: neck dressing clean Home Medication List Medication Instructions Recorded Confirmed Type Aspirin [ASA -] 81 mg PO DAILY 05/04/16 02/27/18 History Cholecalciferol (Vitamin D3) 2,000 unit PO DAILY 05/04/16 02/27/18 History [Vitamin D3] Gabapentin 600 mg PO TID 05/04/16 02/27/18 History Lisinopril 5 mg PO DAILY 05/04/16 02/27/18 History Metformin HCl 500 mg PO BID 05/04/16 02/27/18 History Omeprazole 20 mg PO DAILY 05/04/16 02/27/18 History Oxybutynin Chloride [Ditropan Xl] 10 mg PO BID 05/04/16 02/27/18 History Sertraline HCl [Zoloft] 100 mg PO DAILY 05/04/16 02/27/18 History Active Medications Generic Name Dose Route Start Last Admin Trade Name Freq PRN Reason Stop Dose Admin Docusate Sodium 100 mg 02/28/18 22:00 03/01/18 09:37 Colace - PO 100 mg BID WILLIAM Administration Guaifenesin 10 ml 02/27/18 22:49 03/01/18 11:44 Robitussin - PO 10 ml Q4H PRN Administration COUGH Insulin Aspart 1 vial 02/28/18 11:00 03/01/18 11:41 Novolog Vial Sliding Scale - SQ Not Given ACHS [facility] Protocol Lisinopril 5 mg 02/28/18 12:22 03/01/18 09:37 Prinivil PO 5 mg DAILY WILLIAM Administration Non-Formulary Medication 10 mg 02/27/18 22:00 Oxybutynin Chloride [Ditropan Xl] PO BID [facility] Ondansetron HCl 4 mg 02/27/18 13:30 Zofran Injection IVPUSH Q6H PRN NAUSEA AND/OR VOMITING Ondansetron HCl 4 mg 02/27/18 14:06 Zofran Injection IVPUSH Q6H PRN NAUSEA AND/OR VOMITING Oxycodone HCl 5 mg 02/27/18 14:06 03/01/18 02:30 Roxicodone - PO 5 mg Q4H PRN Administration PAIN LEVEL 6-10 Oxycodone HCl 10 mg 02/27/18 14:06 02/28/18 21:42 Roxicodone - PO 10 mg Q4H PRN Administration PAIN LEVEL 6-10 Pantoprazole Sodium 20 mg 03/01/18 10:00 03/01/18 09:37 Protonix - PO 20 mg DAILY [facility] Administration Senna 2 tab 02/28/18 22:00 02/28/18 21:52 Senna - PO Not Given HS [facility] Sertraline HCl 100 mg 02/28/18 10:00 03/01/18 09:37 Zoloft - PO 100 mg DAILY WILLIAM Administration Laboratory Results - last 24 hr 02/28/18 02/28/18 02/28/18 11:35 16:29 21:38 WBC RBC Hgb Hct MCV MCH MCHC RDW Plt Count MPV Neutrophils % Lymphocytes % Monocytes % Eosinophils % Basophils % Sodium Potassium Chloride Carbon Dioxide Anion Gap BUN Creatinine POC Glucometer 144.39695 142 Random Glucose Hemoglobin A1c % 6.5 H Calcium Phosphorus Magnesium 03/01/18 03/01/18 03/01/18 06:20 06:20 06:29 WBC 7.7 RBC 3.40 L Hgb 8.4 L D Hct 26.3 L MCV 77.5 L MCH 24.6 L MCHC 31.8 L RDW 19.9 H Plt Count 252 MPV 7.8 Neutrophils % Lymphocytes % Monocytes % Eosinophils % Basophils % Sodium 142 Potassium 4.3 Chloride 105 Carbon Dioxide 28 Anion Gap 9 BUN 13 Creatinine 0.8 POC Glucometer 122 Random Glucose 103 Hemoglobin A1c % Calcium 8.5 Phosphorus 3.4 Magnesium 1.9 03/01/18 03/01/18 07:10 11:40 WBC 7.4 RBC 3.41 L Hgb 8.4 L Hct 26.3 L MCV 77.3 L MCH 24.8 L MCHC 32.1 RDW 19.8 H Plt Count 253 MPV 8.1 Neutrophils % 75.0 Lymphocytes % 15.4 Monocytes % 9.0 Eosinophils % 0.2 Basophils % 0.4 Sodium Potassium Chloride Carbon Dioxide Anion Gap BUN Creatinine POC Glucometer 144 Random Glucose Hemoglobin A1c % Calcium Phosphorus Magnesium ASSESSMENT AND PLAN: 62 yof with pMHx of HTN, NIDDM, OA, Cervical spinal stenosis, came for elective C-spine surgery on 02/27, -Cervical spinal stenosis s/p Corpectomy/discectomy/fusion 02/27 -Fall a week ago with left middle phalanx osteophyte fracture -Anemia, ? surgical blood loss, ?baseline -Low grade fevers with cough -NIDDM -HTN -OA Plan: Speech/swallow input noted, dysphagia puree with nectar thick, MBS, aspiration precautions. Aggressive incentive spirometry. Monitor closely. CXR and additional w/u if persistent cough with fevers and worsening WBC with clinical concerns for PNA. Activity/PT eval/DVTPPX/pain control per Dr. Frankel. Discuss with orthopedic for left wrist recs, ?soft splint. Bowel regimen. Monitor h/h, transfuse prn. Check iron panel. Hold metformin, ISS, diabetic diet. Hold Lisinopril for SBP < 110 for now. DVTPPX per Dr. Frankel. Dispo pending clinical improvement. PT eval for d/c planning. Anticipate SHERRI when clinically improved.
--- NOTE | 2018-03-01 15:36 | PATH ---
Surgical Pathology Report Patient Name: BRYAN ALVARES Med. Rec. #: [id number] /Age/Gender: 1955 (Age: 62) / F Account: [id number] Location: [facility] MED/SURG Taken: 02/27/2018 Received: 02/28/2018 Reported: 03/01/2018 Physicians: Edis Frankel M.D. Specimen(s) Received DISC C4,C5,C6,C7 Clinical History Neck pain, C4/C7 disc disorder Final Diagnosis DISC, C4, C5, C6, C7, ANTERIOR CERVICAL DISCECTOMY: INTERVERTEBRAL DISC TISSUE. Electronically Signed Taty Jessica M.D. Gross Description Received in formalin labeled "disc C4, C5, C6, C7," is a 2.0 x 1.3 x 0.3 cm aggregate of ball fragments of fibrocartilaginous tissue. The specimen is entirely submitted in one cassette. /02/28/2018 saudi02/28/2018
[2018-03-01] MEDS: SENNOSIDES 8.6MG TABLET (FP) PO SCH (22:49)
[2018-03-02] MEDS: INSULIN SLIDING SCALE (NOVOLOG) 1 VIAL SQ SCH ×4 (06:24→22:17)
[2018-03-02 07:18] LABS: BASO % 0.3 % (0-2.0); EOS % 0.2 % (0-4.5); HEMATOCRIT 27.1 % (32.4-45.2); HEMOGLOBIN 8.8 GM/dL (10.7-15.3); LYMPH % 12.6 % (8-40); MCH 24.9 pg (25.7-33.7); MCHC 32.4 g/dl (32.0-36.0); MEAN CELL VOLUME 77.1 fl (80-96); MEAN PLT VOLUME 7.8 fl (7.5-11.1); NEUT % 79.9 % (42.8-82.8); PLATELET COUNT 260 K/MM3 (134-434); RBC 3.51 M/mm3 (3.60-5.2); RDW 19.2 % (11.6-15.6); WHITE BLOOD COUNT 9.5 K/mm3 (4.0-10.0)
--- NOTE | 2018-03-02 07:26 | PN ---
Physical Exam: SUBJECTIVE: Patient seen and examined - No major overnight events; slept well; pain well controlled with oxycodone; voiding freely in bedpan; denies f/c/n/v/d, VELAZQUEZ, vision changes, CP, ab pain, back pain, LE edema; Still with productive cough, endorsing occasional SOB; OBJECTIVE: Vital Signs Intake & Output 02/27/18 02/28/18 03/01/18 03/02/18 23:59 23:59 23:59 23:59 Intake Total 2099 2892.9 356 Output Total 700 1600 300 Balance 1399 1292.9 56 Period Temp Pulse Resp BP Sys/Chou Pulse Ox Last 24 Hr 99.2 F-100 F 60-72 18-20 111-128/57-73 91-91 GENERAL: Middle aged woman, NAD HEAD: NCAT EYES: PERRL, extraocular movements intact, sclera anicteric, conjunctiva clear. No ptosis. ENT: Poor dentition. Ears normal, nares patent, oropharynx clear without exudates, moist mucous membranes. NECK: surgical bandages noted with no surround erythema, edema or tenderness. Trachea midline, full range of motion, supple. LUNGS: CTABL, no wheezes, no crackles, no accessory muscle use. HEART: Regular rate and rhythm, S1, S2 without murmur, rub or gallop. ABDOMEN: Globular, otherwise soft, nontender, nondistended, normoactive bowel sounds, no guarding, no rebound, no hepatosplenomegaly, no masses. EXTREMITIES: 2+ pulses, warm, well-perfused, no edema. NEUROLOGICAL: Cranial nerves II through XII grossly intact. Normal speech, gait not observed. 5/5 strength in all extremities, preserved sensation. Still with pain in L wrist, 3rd finger PSYCH: Normal mood, normal affect. pleasant, interactive SKIN: Warm, dry, normal turgor, no rashes or lesions noted Laboratory Results - last 24 hr CBC, BMP 03/02/18 06:00 03/02/18 06:00 02/28/18 02/28/18 03/01/18 11:35 16:29 06:20 WBC 7.7 RBC 3.40 L Hgb 8.4 L D Hct 26.3 L MCV 77.5 L MCH 24.6 L MCHC 31.8 L RDW 19.9 H Plt Count 252 MPV 7.8 Neutrophils % Lymphocytes % Monocytes % Eosinophils % Basophils % Sodium Potassium Chloride Carbon Dioxide Anion Gap BUN Creatinine POC Glucometer 144.00837 Random Glucose Hemoglobin A1c % 6.5 H Calcium Phosphorus Magnesium 03/01/18 03/01/18 03/01/18 06:20 07:10 11:40 WBC 7.4 RBC 3.41 L Hgb 8.4 L Hct 26.3 L MCV 77.3 L MCH 24.8 L MCHC 32.1 RDW 19.8 H Plt Count 253 MPV 8.1 Neutrophils % 75.0 Lymphocytes % 15.4 Monocytes % 9.0 Eosinophils % 0.2 Basophils % 0.4 Sodium 142 Potassium 4.3 Chloride 105 Carbon Dioxide 28 Anion Gap 9 BUN 13 Creatinine 0.8 POC Glucometer 144 Random Glucose 103 Hemoglobin A1c % Calcium 8.5 Phosphorus 3.4 Magnesium 1.9 03/01/18 03/01/18 03/02/18 16:22 22:47 05:59 WBC RBC Hgb Hct MCV MCH MCHC RDW Plt Count MPV Neutrophils % Lymphocytes % Monocytes % Eosinophils % Basophils % Sodium Potassium Chloride Carbon Dioxide Anion Gap BUN Creatinine POC Glucometer 130 141 123 Random Glucose Hemoglobin A1c % Calcium Phosphorus Magnesium Active Medications Generic Name Dose Route Start Last Admin Trade Name Freq PRN Reason Stop Dose Admin Docusate Sodium 100 mg 02/28/18 22:00 03/01/18 22:49 Colace - PO 100 mg BID [facility] Administration Guaifenesin 10 ml 02/27/18 22:49 03/01/18 22:48 Robitussin - PO 10 ml Q4H PRN Administration COUGH Insulin Aspart 1 vial 02/28/18 11:00 03/02/18 06:24 Novolog Vial Sliding Scale - SQ Not Given ACHS [facility] Protocol Lisinopril 5 mg 02/28/18 12:22 03/01/18 09:37 Prinivil PO 5 mg DAILY [facility] Administration Non-Formulary Medication 10 mg 02/27/18 22:00 Oxybutynin Chloride [Ditropan Xl] PO BID [facility] Ondansetron HCl 4 mg 02/27/18 13:30 Zofran Injection IVPUSH Q6H PRN NAUSEA AND/OR VOMITING Ondansetron HCl 4 mg 02/27/18 14:06 Zofran Injection IVPUSH Q6H PRN NAUSEA AND/OR VOMITING Oxycodone HCl 5 mg 02/27/18 14:06 03/01/18 02:30 Roxicodone - PO 5 mg Q4H PRN Administration PAIN LEVEL 6-10 Oxycodone HCl 10 mg 02/27/18 14:06 03/01/18 22:49 Roxicodone - PO 10 mg Q4H PRN Administration PAIN LEVEL 6-10 Pantoprazole Sodium 20 mg 03/01/18 10:00 03/01/18 09:37 Protonix - PO 20 mg DAILY [facility] Administration Senna 2 tab 02/28/18 22:00 03/01/18 22:49 Senna - PO 2 tab HS [facility] Administration Sertraline HCl 100 mg 02/28/18 10:00 03/01/18 09:37 Zoloft - PO 100 mg DAILY [facility] Administration No micro Hand/wrist XR 02/28 - AP, lateral and oblique views reveal loss of bone density, degenerative changes and what may be a subtle fracture of an osteophyte off of the base of the middle phalanx of the left third digit seen on the oblique projection. There is swelling. The other bones appear grossly intact. Correlation recommended. ASSESSMENT/PLAN: Patient is a 62 year old female came in to the hospital for an elective surgery for spinal stenosis admitted in ICU for airway protection. Pt doing well, hemostable. Now with new VITICULTURIST cough and imaging confirmed fx of osteophyte of 3rd phalanx of L hand. #POD 2 from C4-5, C5-6 spinal stenosis. Cervical spondylogenic myelopathy s/p C4, C5 corpectomy. 2. C3, C6 partial corpectomy. 3. C3-4, C4-5, C5-6 discectomies. 4. C3-C6 anterior cervical decompression and instrumented fusion - dysphagia puree with nectar thick per S+S eval - OOB, PT - PO hydration - PO tylenol for pain control - zofran for N/V - SCDs - Aggressive ISS - Attempted to contact ortho team today regarding plan; anticipate plan in f/u documentation #Mild hypoxia/productive cough - - Repeat cxr - NC O2 support - Trend fever, WBC count #dysphagia - MBS - Prior gastric bypass - monitor for signs of dysphagia # Microcytic anemia - Hb: 7.4/22.9 MCV-76.8 on admission - Hgb 8.4 today; transfuse at <7 - f/u iron studies - daily cbcs - monitor for active bleeds # L fx of 3rd phalanx - Ortho notified - XR of L hand as noted above - PT eval - pain control as above # Hypertension-controlled - hold lisinopril for now # DM2 - A1c 6.5 today -hold metformin - ISS, BGM q4h # Urinary retention -Continue Oxybutinin. - hernandez d/c'ed # Depression -Continue Sertraline 100mg PO Daily. # FEN -PO hydration - daily lytes - Dysphagia puree/nectar thick # Prophylaxis - SCDS - PPI full code Plan discussed with attending, Dr. Dariana Orourke, PGY1 Visit type - Emergency Visit Emergency Visit: No - New Patient This patient is new to me today: No - Critical Care Critical Care patient: No - Discharge Referral Referred to [facility] Med P.C.: No
[2018-03-02 07:31] LABS: ANION GAP 7 (8-16); BLOOD UREA NITROGEN 13 mg/dL (7-18); CHLORIDE 108 mmol/L (98-107); CO2 27 mmol/L (21-32); CREATININE 0.7 mg/dL (0.55-1.02); GLUCOSE,RANDOM 114 mg/dL (74-106); POTASSIUM 3.9 mmol/L (3.5-5.1); SODIUM 142 mmol/L (136-145)
--- NOTE | 2018-03-02 08:29 | PN ---
Teaching Attending Note Name of Resident: Shankar Orourke ATTENDING PHYSICIAN STATEMENT I saw and evaluated the patient. I reviewed the resident's note and discussed the case with the resident. I agree with the resident's findings and plan as documented with exceptions below. SUBJECTIVE: Patient seen and examined. some coughing, tolerating diet well, no dyspnea, fevers/chills, abdominal or urinary symptoms. Still with left wrist pain. neck pain well controlled. OBJECTIVE: Vital Signs Period Temp Pulse Resp BP Sys/Chou Pulse Ox Last 24 Hr 99.2 F-100 F 69-72 18-20 111-128/57-73 91-91 Intake & Output 02/27/18 02/28/18 03/01/18 03/02/18 23:59 23:59 23:59 23:59 Intake Total 2099 2892.9 356 Output Total 700 1600 300 Balance 1399 1292.9 56 General: sitting in chair in no acute distress HEENT: Neck dressing clearning, some swelling noted underneath Chest: positive air entry, no rales or wheezing appreciated, decreased effort Abdomen: soft obese, NT Extremities: some improvement in left wrist swelling, improved ROM. Home Medication List Medication Instructions Recorded Confirmed Type Aspirin [ASA -] 81 mg PO DAILY 05/04/16 02/27/18 History Cholecalciferol (Vitamin D3) 2,000 unit PO DAILY 05/04/16 02/27/18 History [Vitamin D3] Gabapentin 600 mg PO TID 05/04/16 02/27/18 History Lisinopril 5 mg PO DAILY 05/04/16 02/27/18 History Metformin HCl 500 mg PO BID 05/04/16 02/27/18 History Omeprazole 20 mg PO DAILY 05/04/16 02/27/18 History Oxybutynin Chloride [Ditropan Xl] 10 mg PO BID 05/04/16 02/27/18 History Sertraline HCl [Zoloft] 100 mg PO DAILY 05/04/16 02/27/18 History Active Medications Generic Name Dose Route Start Last Admin Trade Name Freq PRN Reason Stop Dose Admin Docusate Sodium 100 mg 02/28/18 22:00 03/01/18 22:49 Colace - PO 100 mg BID [facility] Administration Guaifenesin 10 ml 02/27/18 22:49 03/01/18 22:48 Robitussin - PO 10 ml Q4H PRN Administration COUGH Insulin Aspart 1 vial 02/28/18 11:00 03/02/18 06:24 Novolog Vial Sliding Scale - SQ Not Given ACHS [facility] Protocol Lisinopril 5 mg 02/28/18 12:22 03/01/18 09:37 Prinivil PO 5 mg DAILY [facility] Administration Non-Formulary Medication 10 mg 02/27/18 22:00 Oxybutynin Chloride [Ditropan Xl] PO BID [facility] Ondansetron HCl 4 mg 02/27/18 13:30 Zofran Injection IVPUSH Q6H PRN NAUSEA AND/OR VOMITING Ondansetron HCl 4 mg 02/27/18 14:06 Zofran Injection IVPUSH Q6H PRN NAUSEA AND/OR VOMITING Oxycodone HCl 5 mg 02/27/18 14:06 03/01/18 02:30 Roxicodone - PO 5 mg Q4H PRN Administration PAIN LEVEL 6-10 Oxycodone HCl 10 mg 02/27/18 14:06 03/01/18 22:49 Roxicodone - PO 10 mg Q4H PRN Administration PAIN LEVEL 6-10 Pantoprazole Sodium 20 mg 03/01/18 10:00 03/01/18 09:37 Protonix - PO 20 mg DAILY [facility] Administration Senna 2 tab 02/28/18 22:00 03/01/18 22:49 Senna - PO 2 tab HS [facility] Administration Sertraline HCl 100 mg 02/28/18 10:00 03/01/18 09:37 Zoloft - PO 100 mg DAILY [facility] Administration Laboratory Results - last 24 hr 02/28/18 02/28/18 03/01/18 11:35 16:29 07:10 WBC 7.4 RBC 3.41 L Hgb 8.4 L Hct 26.3 L MCV 77.3 L MCH 24.8 L MCHC 32.1 RDW 19.8 H Plt Count 253 MPV 8.1 Neutrophils % 75.0 Lymphocytes % 15.4 Monocytes % 9.0 Eosinophils % 0.2 Basophils % 0.4 Sodium Potassium Chloride Carbon Dioxide Anion Gap BUN Creatinine POC Glucometer 144.52491 Random Glucose Hemoglobin A1c % 6.5 H Calcium 03/01/18 03/01/18 03/01/18 11:40 16:22 22:47 WBC RBC Hgb Hct MCV MCH MCHC RDW Plt Count MPV Neutrophils % Lymphocytes % Monocytes % Eosinophils % Basophils % Sodium Potassium Chloride Carbon Dioxide Anion Gap BUN Creatinine POC Glucometer 144 130 141 Random Glucose Hemoglobin A1c % Calcium 03/02/18 03/02/18 03/02/18 05:59 06:00 06:00 WBC 9.5 RBC 3.51 L Hgb 8.8 L Hct 27.1 L MCV 77.1 L MCH 24.9 L MCHC 32.4 RDW 19.2 H Plt Count 260 MPV 7.8 Neutrophils % 79.9 Lymphocytes % 12.6 Monocytes % 7.0 Eosinophils % 0.2 Basophils % 0.3 Sodium 142 Potassium 3.9 Chloride 108 H Carbon Dioxide 27 Anion Gap 7 L BUN 13 Creatinine 0.7 POC Glucometer 123 Random Glucose 114 H Hemoglobin A1c % Calcium 8.0 L Surgical pathology report noted ASSESSMENT AND PLAN: 62 yof with pMHx of HTN, NIDDM, OA, Gastric bypass, Cervical spinal stenosis, came for elective C-spine surgery on 02/27, -Cervical spinal stenosis s/p Corpectomy/discectomy/fusion 02/27 -Fall a week ago with left middle phalanx osteophyte fracture -Anemia, ? surgical blood loss, ?baseline -Low grade fevers with cough -NIDDM -HTN -OA Plan: Speech/swallow input noted, dysphagia puree with nectar thick, follow up MBS, aspiration precautions. Patient reports MBS years ago post gastric bypass. Aggressive incentive spirometry, encouraged patient. Monitor closely. CXR and additional w/u if persistent cough with fevers and worsening WBC with clinical concerns for PNA. Doing well currently. Activity/PT eval/DVTPPX/pain control per Dr. Frankel. Discuss with orthopedic for left wrist recs, ?soft splint. Bowel regimen. Monitor h/h, transfuse prn. Check iron panel. Hold metformin, ISS, diabetic diet. Hold Lisinopril for SBP < 110 for now. DVT[address]X per Dr[address] Frankel. Dispo pending clinical improvement. PT eval for d/c planning. Anticipate SHERRI when clinically improved.
[2018-03-02] MEDS: DOCUSATE SODIUM 100 MG CAPSULE (FP) PO SCH ×2 (10:52→22:21)
[2018-03-02] MEDS: LISINOPRIL 5 MG TABLET (FP) PO SCH (10:52)
[2018-03-02] MEDS: PANTOPRAZOLE 20 MG TABLET (FP) PO SCH (10:52)
[2018-03-02] MEDS: SERTRALINE HCL 50 MG TABLET (FP) PO SCH (10:53)
[2018-03-02] MEDS: ACETAMINOPHEN 500 MG TABLET (FP) PO PRN ×2 (16:54→22:21)
[2018-03-02] MEDS: guaiFENesin 200 MG/10 ML 10 ML UNIT-DOSE CUPS PO PRN ×2 (16:54→22:21)
[2018-03-02] MEDS ORDERED: PATIENT'S OWN MEDICATION (NON-FORMULARY) (Oxybutynin Chloride [Ditropan Xl] 10 MG) PO SCH (19:30)
[2018-03-02] MEDS ORDERED: oxyCODONE HCL 5 MG TABLET PO ONE (21:30)
[2018-03-02] MEDS: oxyCODONE HCL 5 MG TABLET PO ONE ×2 (22:14→22:18)
[2018-03-02] MEDS: SENNOSIDES 8.6MG TABLET (FP) PO SCH (22:21)
[2018-03-03 06:07] LABS: TRANSFERRIN 201 mg/dL (200-370)
[2018-03-03] MEDS: INSULIN SLIDING SCALE (NOVOLOG) 1 VIAL SQ SCH ×2 (06:50→11:21)
--- NOTE | 2018-03-03 07:34 | PN ---
Physical Exam: SUBJECTIVE: Patient seen and examined OBJECTIVE: Vital Signs Intake & Output 02/28/18 03/01/18 03/02/18 03/03/18 23:59 23:59 23:59 23:59 Intake Total 2892.9 356 Output Total 1600 300 200 Balance 1292.9 56 -200 Period Temp Pulse Resp BP Sys/Chou Pulse Ox Last 24 Hr 98.0 F-100 F 60-76 20-22 100-112/56-65 94-94 GENERAL: Middle aged woman, NAD HEAD: NCAT EYES: PERRL, extraocular movements intact, sclera anicteric, conjunctiva clear. No ptosis. ENT: Poor dentition. Ears normal, nares patent, oropharynx clear without exudates, moist mucous membranes. NECK: surgical bandages noted with no surround erythema, edema or tenderness. Trachea midline, full range of motion, supple. LUNGS: CTABL, no wheezes, no crackles, no accessory muscle use. HEART: Regular rate and rhythm, S1, S2 without murmur, rub or gallop. ABDOMEN: Globular, otherwise soft, nontender, nondistended, normoactive bowel sounds, no guarding, no rebound, no hepatosplenomegaly, no masses. EXTREMITIES: 2+ pulses, warm, well-perfused, no edema. NEUROLOGICAL: Cranial nerves II through XII grossly intact. Normal speech, gait not observed. 5/5 strength in all extremities, preserved sensation. Still with pain in L wrist, 3rd finger PSYCH: Normal mood, normal affect. pleasant, interactive SKIN: Warm, dry, normal turgor, no rashes or lesions noted Laboratory Results - last 24 hr CBC, BMP CBC, BMP 03/02/18 06:00 03/02/18 06:00 03/02/18 06:00 03/02/18 06:00 02/28/18 03/02/18 03/02/18 08:30 06:00 06:00 WBC 9.5 RBC 3.51 L Hgb 8.8 L Hct 27.1 L MCV 77.1 L MCH 24.9 L MCHC 32.4 RDW 19.2 H Plt Count 260 MPV 7.8 Neutrophils % 79.9 Lymphocytes % 12.6 Monocytes % 7.0 Eosinophils % 0.2 Basophils % 0.3 Sodium 142 Potassium 3.9 Chloride 108 H Carbon Dioxide 27 Anion Gap 7 L BUN 13 Creatinine 0.7 POC Glucometer Random Glucose 114 H Calcium 8.0 L Transferrin 201 03/02/18 03/02/18 03/02/18 12:09 16:47 22:16 WBC RBC Hgb Hct MCV MCH MCHC RDW Plt Count MPV Neutrophils % Lymphocytes % Monocytes % Eosinophils % Basophils % Sodium Potassium Chloride Carbon Dioxide Anion Gap BUN Creatinine POC Glucometer 132 109 128 Random Glucose Calcium Transferrin 03/03/18 06:49 WBC RBC Hgb Hct MCV MCH MCHC RDW Plt Count MPV Neutrophils % Lymphocytes % Monocytes % Eosinophils % Basophils % Sodium Potassium Chloride Carbon Dioxide Anion Gap BUN Creatinine POC Glucometer 129 Random Glucose Calcium Transferrin Active Medications Generic Name Dose Route Start Last Admin Trade Name Freq PRN Reason Stop Dose Admin Acetaminophen 500 mg 03/02/18 16:35 03/02/18 22:21 Tylenol - PO 500 mg Q4H PRN Administration PAIN LEVEL 1-5 Docusate Sodium 100 mg 02/28/18 22:00 03/02/18 22:21 Colace - PO 100 mg BID [facility] Administration Guaifenesin 10 ml 02/27/18 22:49 03/02/18 22:21 Robitussin - PO 10 ml Q4H PRN Administration COUGH Insulin Aspart 1 vial 02/28/18 11:00 03/03/18 06:50 Novolog Vial Sliding Scale - SQ Not Given ACHS [facility] Protocol Lisinopril 5 mg 02/28/18 12:22 03/02/18 10:52 Prinivil PO 5 mg DAILY [facility] Administration Non-Formulary Medication 10 mg 03/02/18 19:30 Oxybutynin Chloride [Ditropan Xl] PO BID [facility] Ondansetron HCl 4 mg 02/27/18 14:06 Zofran Injection IVPUSH Q6H PRN NAUSEA AND/OR VOMITING Pantoprazole Sodium 20 mg 03/01/18 10:00 03/02/18 10:52 Protonix - PO 20 mg DAILY [facility] Administration Senna 2 tab 02/28/18 22:00 03/02/18 22:21 Senna - PO 2 tab HS [facility] Administration Sertraline HCl 100 mg 02/28/18 10:00 03/02/18 10:53 Zoloft - PO 100 mg DAILY [facility] Administration No micro Hand/wrist XR 02/28 - AP, lateral and oblique views reveal loss of bone density, degenerative changes and what may be a subtle fracture of an osteophyte off of the base of the middle phalanx of the left third digit seen on the oblique projection. There is swelling. The other bones appear grossly intact. Correlation recommended. ASSESSMENT/PLAN: Patient is a 62 year old female came in to the hospital for an elective surgery for spinal stenosis admitted in ICU for airway protection. Pt doing well, hemostable. 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 #POD 2 from C4-5, C5-6 spinal stenosis. Cervical spondylogenic myelopathy s/p C4, C5 corpectomy. 2. C3, C6 partial corpectomy. 3. C3-4, C4-5, C5-6 discectomies. 4. C3-C6 anterior cervical decompression and instrumented fusion - dysphagia puree with nectar thick per S+S eval - OOB, PT - PO hydration - PO tylenol for pain control - zofran for N/V - SCDs - Aggressive ISS - Attempted to contact ortho team today regarding plan; anticipate plan in f/u documentation #Mild hypoxia/productive cough - - Repeat cxr - NC O2 support - Trend fever, WBC count #dysphagia - MBS - Prior gastric bypass - monitor for signs of dysphagia # Microcytic anemia - Hb: 7.4/22.9 MCV-76.8 on admission - Hgb 8.4 today; transfuse at <7 - f/u iron studies - daily cbcs - monitor for active bleeds # L fx of 3rd phalanx - Ortho notified - XR of L hand as noted above - PT eval - pain control as above # Hypertension-controlled - hold lisinopril for now # DM2 - A1c 6.5 today -hold metformin - ISS, BGM q4h # Urinary retention -Continue Oxybutinin. - hernandez d/c'ed # Depression -Continue Sertraline 100mg PO Daily. # FEN -PO hydration - daily lytes - Dysphagia puree/nectar thick # Prophylaxis - SCDS - PPI full code Plan discussed with attending, Dr. Dariana Orourke, PGY1
[2018-03-03 08:07] LABS: SERUM IRON SATURATION 11 % (15-55); TOTAL IRON BINDING CAPACITY 258 ug/dL (250-450); UIBC 229 ug/dL (118-369)
[2018-03-03] MEDS ORDERED: PT OWN MED DRAWER 7, Y5N ONE (09:52)
[2018-03-03] MEDS: DOCUSATE SODIUM 100 MG CAPSULE (FP) PO SCH (09:56)
[2018-03-03] MEDS: LISINOPRIL 5 MG TABLET (FP) PO SCH (09:57)
[2018-03-03] MEDS: SERTRALINE HCL 50 MG TABLET (FP) PO SCH (09:57)
[2018-03-03] MEDS: PANTOPRAZOLE 20 MG TABLET (FP) PO SCH (09:57)
--- NOTE | 2018-03-03 15:11 | PN ---
Teaching Attending Note Name of Resident: Shankar Orourke ATTENDING PHYSICIAN STATEMENT I saw and evaluated the patient. I reviewed the resident's note and discussed the case with the resident. I agree with the resident's findings and plan as documented with exceptions below. SUBJECTIVE: Patient seen and examined. tolerating diet. no new cough, fevers, chills. left hand pain unchanged. OBJECTIVE: Vital Signs Period Temp Pulse Resp BP Sys/Chou Pulse Ox Last 24 Hr 98.0 F-100 F 60-68 20-22 100-112/56-65 94 Intake & Output 02/28/18 03/01/18 03/02/18 03/03/18 23:59 23:59 23:59 23:59 Intake Total 2892.9 356 Output Total 1600 300 200 Balance 1292.9 56 -200 General: sitting in chair in no acute distress Chest: few basilar rales, improved effort Neck: dressing with no active bleed or discharge Abdomen: soft, NT Extremities: some improvement in left wrist swelling, positive pulses Home Medication List Medication Instructions Recorded Confirmed Type Aspirin [ASA -] 81 mg PO DAILY 05/04/16 02/27/18 History Cholecalciferol (Vitamin D3) 2,000 unit PO DAILY 05/04/16 02/27/18 History [Vitamin D3] Gabapentin 600 mg PO TID 05/04/16 02/27/18 History Lisinopril 5 mg PO DAILY 05/04/16 02/27/18 History Metformin HCl 500 mg PO BID 05/04/16 02/27/18 History Omeprazole 20 mg PO DAILY 05/04/16 02/27/18 History Oxybutynin Chloride [Ditropan Xl] 10 mg PO BID 05/04/16 02/27/18 History Sertraline HCl [Zoloft] 100 mg PO DAILY 05/04/16 02/27/18 History Active Medications Generic Name Dose Route Start Last Admin Trade Name Freq PRN Reason Stop Dose Admin Acetaminophen 500 mg 03/02/18 16:35 03/02/18 22:21 Tylenol - PO 500 mg Q4H PRN Administration PAIN LEVEL 1-5 Docusate Sodium 100 mg 02/28/18 22:00 03/03/18 09:56 Colace - PO 100 mg BID [facility] Administration Guaifenesin 10 ml 02/27/18 22:49 03/02/18 22:21 Robitussin - PO 10 ml Q4H PRN Administration COUGH Insulin Aspart 1 vial 02/28/18 11:00 03/03/18 11:21 Novolog Vial Sliding Scale - SQ Not Given ACHS [facility] Protocol Lisinopril 5 mg 02/28/18 12:22 03/03/18 09:57 Prinivil PO 5 mg DAILY [facility] Administration Non-Formulary Medication 10 mg 03/02/18 19:30 Oxybutynin Chloride [Ditropan Xl] PO BID [facility] Ondansetron HCl 4 mg 02/27/18 14:06 Zofran Injection IVPUSH Q6H PRN NAUSEA AND/OR VOMITING Pantoprazole Sodium 20 mg 03/01/18 10:00 03/03/18 09:57 Protonix - PO 20 mg DAILY [facility] Administration Senna 2 tab 02/28/18 22:00 03/02/18 22:21 Senna - PO 2 tab HS [facility] Administration Sertraline HCl 100 mg 02/28/18 10:00 03/03/18 09:57 Zoloft - PO 100 mg DAILY [facility] Administration Laboratory Results - last 24 hr 02/28/18 03/02/18 03/02/18 08:30 16:47 22:16 POC Glucometer 109 128 Iron 29 TIBC 258 Iron Saturation 11 L Transferrin 201 03/03/18 03/03/18 06:49 11:20 POC Glucometer 129 111 Iron TIBC Iron Saturation Transferrin CXr - bibasilar atelectasis ASSESSMENT AND PLAN: 62 yof with pMHx of HTN, NIDDM, OA, Gastric bypass, Cervical spinal stenosis, came for elective C-spine surgery on 02/27, -Cervical spinal stenosis s/p Corpectomy/discectomy/fusion 02/27 -Fall a week ago with left middle phalanx osteophyte fracture -Anemia, ? surgical blood loss, ?baseline -Low grade fevers with cough -NIDDM -HTN -OA Plan: Speech/swallow input noted, MBS noted. Chopped diet with thin liquids. Aggressive incentive spirometry, encouraged patient. Monitor closely. CXR noted, encourage incentive spiromentry. Activity/PT eval/DVTPPX/pain control per Dr. Frankel. Discuss with orthopedic for left wrist recs, ?soft splint. Bowel regimen. Monitor h/h, transfuse prn. iron panel noted. start iron supplementation, outpatient monitoring. resume metformin on d.c, ISS and diabetic diet at the facility. DVTPPX per Dr. Frankel. Dispo for SHERRI pending ortho input and bed arrangement. Plan discussed with patient in detail, all questions answered.
[2018-03-03 15:53] VITALS: BP 119/71; PULSE 67; TEMP 98.1
--- NOTE | 2018-03-03 17:07 | DS ---
Physical Exam: SUBJECTIVE: Patient seen and examined by me this AM - No major overnight events; still complaining of pain in L wrist and 3rd finger ; Inhouse ortho contacted, recommended "jonatan taping" for support for 3rd digit fx; unable to reach primary surgical team; Pt with +BM; denies f/c/n/v/d, CP, ab pain , back pain, LE edema, FNDs; tolerating PO feeds; pt counseled on f/u with surgical team; discharged to [facility] OBJECTIVE: Vital Signs Period Temp Pulse Resp BP Sys/Chou Pulse Ox Last 24 Hr 98.0 F-99 F 60-67 20-22 109-119/59-71 94 PHYSICAL EXAM GENERAL: Middle aged woman, NAD, A&Ox3 HEAD: NCAT EYES: PERRL, extraocular movements intact, sclera anicteric, conjunctiva clear. No ptosis. ENT: Poor dentition. Ears normal, nares patent, oropharynx clear without exudates, moist mucous membranes. NECK: Surgical bandages noted with no surround erythema, edema or tenderness. Trachea midline, full range of motion, supple. LUNGS: Trace upper airway rhonchi, otherwise CTABL, no wheezes, no crackles, no accessory muscle use. HEART: Regular rate and rhythm, S1, S2 without murmur, rub or gallop. ABDOMEN: soft, nontender, nondistended, normoactive bowel sounds, no guarding, no rebound, no hepatosplenomegaly, no masses. EXTREMITIES: 2+ pulses, warm, well-perfused, no edema. NEUROLOGICAL: Cranial nerves II through XII grossly intact. Normal speech, gait not observed. 5/5 strength in all extremities, preserved sensation. Still with pain in L wrist on palpation; no gross deformities note in L hand PSYCH: Normal mood, normal affect. pleasant, interactive SKIN: Warm, dry, normal turgor, no rashes or lesions noted LABS Laboratory Results - last 24 hr 02/28/18 03/02/18 03/02/18 08:30 16:47 22:16 POC Glucometer 109 128 Iron 29 TIBC 258 Iron Saturation 11 L Transferrin 201 03/03/18 03/03/18 06:49 11:20 POC Glucometer 129 111 Iron TIBC Iron Saturation Transferrin No micro Hand/wrist XR 02/28 - AP, lateral and oblique views reveal loss of bone density, degenerative changes and what may be a subtle fracture of an osteophyte off of the base of the middle phalanx of the left third digit seen on the oblique projection. There is swelling. The other bones appear grossly intact. Correlation recommended. FInger XR 03/02 - AP, oblique and lateral views reveal loss of bone density with degenerative changes. An acute fracture subluxation is not seen. The questionable dorsal inferior fracture of the middle phalanx is difficult to see in the current exam as compared to the prior study of 02/28/2018. Correlation recommended. Better imaging is needed. CXR 03/02 - Imaging reveals bilateral shoulder replacements, lower cervical spine fusion, slightly elevated right hemidiaphragm, minimal atelectatic changes at the bases, normal mediastinum and no sign of pleural fluid. There are no prior studies for comparison Consults: Ortho - Dr. Frankel HOSPITAL COURSE: Prehospital course: Patient is a 62 year old female came in to the hospital for an elective surgery for spinal stenosis. Patient mentions she has had neck pain since 2016, has been going for physical therapy without any relief. Hence has been visiting Dr. Frankel's office for further evaluation and was sent to the hospital yesterday for an elective surgery. Patient says she lives at home by herself. Had a mechanical fall a week ago, landed on the left hand, didn't hit her head or lose consciousness. Walks with a walker and needs to be replaced. Patient underwent surgery on 02/27/2018 C4, C5 corpectomy. 2. C3, C6 partial corpectomy. 3. C3-4, C4-5, C5-6 discectomies. 4. C3-C6 anterior cervical decompression and instrumented fusion. Was admitted in ICU for airway protection. Past Medical Hx: Hypertension, DM, Urinary retention, Depression Allergies: Warfarin, Penicillins, Sulfa Surgery: Hip, knee, spinal, 2 shoulder surgery and gastric bypass Smoking/Drugs: Denies Alcohol: Occasional Hospital course: On admission to ICU for post-op care and respiratory support, VSS. labs notable for hgb 7.4, microcytic. No other abnormalities. Pt complaining of pain in L wrist, 3rd finger post fall. Receive XR of L hand notable for subtle osteophyte fx of base of 3rd digit. Multiple attempts made to contact primary surgical team regarding post surgical care, unable to contact; Pt with mild cough post-op , ordered for robitussin and O2 support given brief hypoxia to 91%. Borderline fevers to 100 two nights in a row, likely secondary to post-op atelectasis. CXR on 03/02 only notable for bibasilar atelctasis; pt encouraged to use ISS. Pt sent for S+S eval, diet approved for dysphagia puree and nectar thick liquids initially. Pt received modified barium swallow on 03/03 that was grossly normal; diet advanced to chopped diet with thin liquids on discharge. During course of admission, pt pain well controlled, tolerated diet advancement, stooling. discharged to [facility] with outpt f/u with Dr. Frankel in one week. No dvt ppx per ortho recs, WBAT in all extremities. Pt provided "jonatan tape" for 3rd digit fx; advised to f/u with Dr. Frankel on further management. Date of Admission:02/27/18 Date of Discharge: 03/03/18 Pt is medically stable and cleared for discharge to [facility] with outpt f/u with Dr. Frankel in one week. Minutes to complete discharge: 35 Discharge Summary Reason For Visit: MID-CERVICAL DISC DISORDER, UNSPECIFIED Condition: Good - Instructions Diet, Activity, Other Instructions: During your stay at [facility], you received a surgical decompression of your cervical vertebrae to improve your diagnosed spinal stenosis. You are recovering from this procedure and will be discharged to short-term rehab to further optimize your recovery in the short term period. Medications: The following medications were added to your home regimen. Please take them as specified below: Feosol 325mg, take one pill by mouth once a day. This medication can commonly cause constipation and lead to dark stools. Please take miralax once a day if you experience constipation. This medication is available over the counter If you experience pain at your surgical site, please take tylenol 650mg once every four hours until the pain resolves Please continue to take all other home medications as previously directed. Chest physical therapy and incentive spirometry every hour when awake. While you are at your rehab facility, you should be placed on SCDs and thigh high TASHA stockings per ortho recommendations. Follow-ups: Please follow-up with your primary care physician in one week for further management of your medications. Please call their office to schedule an appointment. Please call within one week to schedule an appointment. Please follow-up with your surgeon, Dr. Frankel, in one week for further management of your post-op care. His contact number has been provided in this packet. Please call his office to make an appointment. You received an x-ray of your left hand and wrist due to pain from your prior fall. This imaging showed a small fracture in your 3rd finger of your left hand. Please apply "jonatan tape" (affix 3rd finger to 4th finger with surgical tape) in order to support the 3rd finger and support healing. Please apply pancho bandages to your left wrist for support. Keep arm elevated and avoid lifting in the hand till symptoms improve. Follow up with orthopedic in 1 week Diet: Please abide by the following dietary recommendations. Regular chopped with thin liquids. Alternate solid with liquids while eating and finish meal with thin liquids. Exercise: You are approved for weight bearing as tolerated in all extremities. You are cleared for showering with assistance. Please follow up with Dr. Frankel in one week. Please return to the hospital if you experience any of the following symptoms: - Worsening pain, swelling or redness at the surgical site - Persistent fevers/chills - Inability to swallow or difficulty taking breaths - Any new or concerning symptoms Referrals: Edis Frankel MD [Staff Physician] - 1 Week Disposition: NURSING HOME FACILITY - Home Medications Comprehensive Discharge Medication List: Ambulatory Orders Aspirin [ASA -] 81 mg PO DAILY 05/04/16 Cholecalciferol (Vitamin D3) [Vitamin D3] 2,000 unit PO DAILY 05/04/16 Gabapentin 600 mg PO TID 05/04/16 Lisinopril 5 mg PO DAILY 05/04/16 Metformin HCl 500 mg PO BID 05/04/16 Omeprazole 20 mg PO DAILY 05/04/16 Oxybutynin Chloride [Ditropan Xl] 10 mg PO BID 05/04/16 Sertraline HCl [Zoloft] 100 mg PO DAILY 05/04/16 Acetaminophen [Tylenol .Extra-Strength -] 500 mg PO Q4H PRN tablet 03/03/18 Ferrous Sulfate [Feosol] 325 mg PO DAILY@0800 #30 ud 03/03/18 This patient is new to me today: No Emergency Visit: No Critical Care patient: No - Discharge Referral Referred to [facility] No
[2018-03-04] MEDS ORDERED: FERROUS SO4 325 MG TABLET (FP) PO SCH (08:00)
== END 2018-03-03 16:54 | DRG 472 ==
LOC: JSAMEDAYSX 06:26 → EDSTATUS 08:00 → JICU 16:04 → J8W 02-28 17:27 → UNDODISIN 03-02 19:17
PROVIDERS: ADMIT Orthopaedic Surgery Orthopaedic Surgery of the Spine; ATTEND Hospitalist
PROC: 0PB30ZZ Excision of Cervical Vertebra, Open Approach (ICD-10-PCS; 2018-02-27)
PROC: 0RG20A0 Fusion of 2 or more Cervical Vertebral Joints with Interbody Fusion Device, Anterior Approach, Anterior Column, Open Approach (ICD-10-PCS; principal; 2018-02-27 08:00)
DX: M47.12 Other spondylosis with myelopathy, cervical region (principal); J95.89 Other postprocedural complications and disorders of respiratory system, not elsewhere classified; J98.11 Atelectasis; M48.02 Spinal stenosis, cervical region; I10 Essential (primary) hypertension; F32.9 Major depressive disorder, single episode, unspecified; Z88.0 Allergy status to penicillin; D50.9 Iron deficiency anemia, unspecified; R33.8 Other retention of urine; R13.10 Dysphagia, unspecified; Z79.84 Long term (current) use of oral hypoglycemic drugs; S62.623A Displaced fracture of middle phalanx of left middle finger, initial encounter for closed fracture; W19.XXXA Unspecified fall, initial encounter; Y93.89 Activity, other specified; Y92.098 Other place in other non-institutional residence as the place of occurrence of the external cause; Y99.8 Other external cause status; Y83.8 Other surgical procedures as the cause of abnormal reaction of the patient, or of later complication, without mention of misadventure at the time of the procedure
CPT/HCPCS: 36415; 71045-TC-FY; 73110-TC-LR-FY; 73130-TC-LR-FY; 73140-TC-LT-FY; 74230-TC-FY; 76000-TC-FY; 80048; 82962; 83036; 83540; 83550; 83735; 84100; 84466; 85025; 85027; 86850; 86900; 86901; 88304-TC; 92611-GN; 97116-GP; 97161-GP; J0131; J1644